=== PATIENT | female | born 1950 | race Native Hawaiian/Other Pacific Islander ===

== ENCOUNTER 2019-12-19 10:30 | Emergency (ER) | payer OTHER ==
[~2019-12-19] VITALS: Ht 162.6 cm; Wt 74.8 kg
[2019-12-19 11:12] LABS: PLATELET COUNT 374 K/uL (152-353)
[2019-12-19] MEDS ORDERED: AMLODIPINE BESYLATE PO (11:21)
[2019-12-19] MEDS ORDERED: ZESTRIL40 MG PO (11:21)
[2019-12-19] MEDS ORDERED: METOPROLOL25 M1 PO (11:22)
[2019-12-19] MEDS ORDERED: ONDANSETRON4 M2 PO (11:22)
[2019-12-19 11:23] LABS: POTASSIUM 4.1 mmol/L (3.6-5.2)
[2019-12-19] MEDS ORDERED: OMEPRAZOLE20 M1 PO (11:23)
[2019-12-19] MEDS ORDERED: ASPIR-LOW81 MG PO (11:24)
[2019-12-19] MEDS ORDERED: VITAMIN D32000 UNI1 PO (11:25)
[2019-12-19 15:40] VITALS: BP 157/67; TEMP 97.9
== END 2019-12-19 15:40 | disposition home or self-care (01) ==
LOC: ED 10:30
PROVIDERS: Emergency Medicine
DX: D64.89 Other specified anemias (principal); R53.1 Weakness; I51.7 Cardiomegaly; R93.89 Abnormal findings on diagnostic imaging of other specified body structures
CPT/HCPCS: 80053; 81000; 82550; 82553; 84484; 85027; 93005; 99284